=== PATIENT | female | born 1985 | race Hispanic/Latino ===

== ENCOUNTER 2017-12-23 07:53 | Emergency (ER) | payer BC, SELFPAY ==
[2017-12-23 09:07] LABS: #Eosinphils 0.2 thou/uL (0.0-0.7); #Lymphocytes 1.6 thou/uL (1.20-3.40); #Monocytes 0.3 thou/uL (0.11-0.59); #Neutrophils 5.2 thou/uL (1.40-6.50); %Basophils 0.4 % (0.0-1.0); %Eosinophils 2.1 % (0.0-10.0); %Monocytes 4.4 % (0.0-10.0); %Neutrophils 71.1 % (42.0-75.0); Hemoglobin 14.8 g/dL (12.0-16.0); Mean Corpuscular HGB CONC 34.2 g/dL (32.0-36.0); Mean Corpuscular Hemoglobin 31.3 pg (27.0-31.0); Mean Corpuscular Volume 91.6 fL (78.0-98.0); Mean Platelet Volume 6.9 fL (7.4-10.4); Platelet Count 302 thou/uL (130-400); RBC Distribution Width 11.2 % (11.5-14.5); Red Blood Cell (RBC) Count 4.74 mill/uL (4.20-5.40); White Blood Cell (WBC) Count 7.3 thou/uL (4.8-10.8)
[2017-12-23 09:28] LABS: Bilirubin Negative (Negative); Blood, Urine Large (Negative); Clarity CLOUDY (Clear); Glucose, Urine (Dipstick) Negative (Negative); Leukocyte Trace (Negative); Nitrite Negative (Negative); Protein, Urine (Dipstick) 30 mg/dL (Neg-Trace); Urobilinogen 0.2 mg/dL (0.2-1.0)
[2017-12-23 09:31] LABS: Bacteria/HPF None Seen HPF (None Seen); RBC/HPF GREATER THAN 50-TNTC HPF (0-3)
[2017-12-23 10:11] LABS: Pathc Cast-AUWi Flag 5.52 (0-2.49)
[2017-12-23 10:27] LABS: Hyaline Casts/LPF 0-3 HYALINE CAST LPF (0-3 Hyaline); Other Casts/LPF None Seen LPF (0-3 Hyaline)
--- NOTE | 2017-12-23 10:27 | ULT ---
PELVIS ULTRASOUND: 12/23/2017 HISTORY: Vaginal bleeding, which started yesterday. The patient is approximately eight weeks' . TECHNIQUE: Multiple transabdominal and endovaginal sonographic images of the pelvis are obtained. FINDINGS: The uterus measures 10.1 cm x 4.2 cm x 4.1 cm. The endometrial stripe measures 0.6 cm in thickness, which is within normal limits for the patient's age. No fluid or fluid collection is seen in the end ometrial canal. The ovaries demonstrate a normal sonographic appearance bilaterally, with the right ovary measuring 3 cm x 1.5 cm x 1.7 cm and the left ovary measuring 2.7 cm x 1.4 cm x 1.4 cm. Doppler evaluation with spectral analysis and color-flow evaluation demonstrates arterial and venous flow in each ovary. No free fluid is seen in the cul-de-sac. IMPRESSION: 1. Normal appearing uterus and bilateral ovaries. 2. No findings to suggest an intrauterine gestation. Correlation with quantitative beta hCG level i s recommended. Ectopic cannot be excluded based on normal pelvic ultrasound. POS: [facility]
[2017-12-25 22:39] LABS: Chlamydia by PCR Not Detected (NotDetected); GC by PCR Not Detected (NotDetected)
== END 2017-12-23 11:11 | disposition home or self-care (01) ==
LOC: ERS 07:53
DX: O03.9 Complete or unspecified spontaneous abortion without complication (principal)
CPT/HCPCS: 36415; 76856; 81003; 81015; 84702; 85025; 86900; 86901; 87480; 87491; 87510; 87591; 87660